=== PATIENT | male | born 1985 | race Caucasian/White ===

== ENCOUNTER 2019-01-14 17:39 | Emergency (ER) | payer BC, OTHER ==
[~2019-01-14] VITALS: Ht 188 cm; Wt 113.4 kg
[2019-01-14 20:35] VITALS: BP 159/91
[2019-01-14] MEDS ORDERED: TETRACAINE HCL 0.5% OPTH(EYE) SOLN 4ML LEFTEYE ONE (21:30)
[2019-01-14] MEDS ORDERED: FLUORESCEIN SOD 1 MG TEST STRIP LEFTEYE ONE (21:30)
== END 2019-01-14 22:03 | disposition home or self-care (01) ==
LOC: ER 17:45
DX: T15.92XA Foreign body on external eye, part unspecified, left eye, initial encounter (principal); X58.XXXA Exposure to other specified factors, initial encounter; Y93.89 Activity, other specified; Y99.8 Other external cause status; Y92.89 Other specified places as the place of occurrence of the external cause